=== PATIENT | female | born 1970 | race Caucasian/White ===

== ENCOUNTER 2016-07-22 12:13 | Emergency (ER) | payer BC ==
[~2016-07-22] VITALS: Ht 165.1 cm; Wt 68.0 kg
[~2016-07-22 12:13] MED LIST: HYDR-971 PO; LEVO200T5 PO; LEVO25TA4 PO; OMEP40CA5 PO; ONDA4TAB7 PO; OXYC-323 PO; PHEN15CA PO
[2016-07-22 13:20] VITALS: BP 118/78
--- NOTE | 2016-07-22 13:49 | PHYS DOC ---
Past Medical History Past Medical History: Hypothyroid Past Surgical History: Hysterectomy, Other Additional Past Surgical Histo: Thyroidectomy. Alcohol Use: None Drug Use: None Adult General Chief Complaint Chief Complaint: FACE PROBLEM HPI HPI Patient is a 46 year old female presents emergency department stating that she was going up her stairs at home last week when she fell hitting the left side of her face. She believes she had lost consciousness as she does not remember picking up things and making it back into the house. Patient states she's continued to have headaches. She states that she's had bruising to the left side of her face. She's been taken ibuprofen for the pain and discomfort. She denies any use of blood thinners. Patient denies any neck pain or discomfort. She does state that she has some urinary frequency urgency and pain with urination. She is also claiming that she is having left wrist pain and discomfort. Patient denies placing ice packs on the left wrist. Patient denies any vaginal discharge. Patient denies any fever, chills or any nausea vomiting. Review of Systems Review of Systems Constitutional: Denies fever or chills [] Eyes: Denies change in visual acuity, redness, or eye pain [] HENT: Denies nasal congestion or sore throat. Bruising left side of face Respiratory: Denies cough or shortness of breath [] Cardiovascular: No additional information not addressed in HPI [] GI: Denies abdominal pain, nausea, vomiting, bloody stools or diarrhea [] : dysuria denies hematuria [] Musculoskeletal: Denies back pain or joint pain [] Integument: Denies rash or skin lesions [] Neurologic: headache, denies focal weakness or sensory changes [] Allergies Allergies Allergies Coded Allergies Type Severity Reaction Last Updated Verified No Known Drug Allergies 01/09/15 No Physical Exam Physical Exam Constitutional: Well developed, well nourished, no acute distress, non-toxic appearance. [] HENT: Normocephalic, atraumatic, bilateral external ears normal, oropharynx moist, no oral exudates, nose normal. Bilateral tympanic membranes appear to be normal. Patient is able to open and close her mouth without difficulty. Eyes: PERRLA, EOMI, conjunctiva normal, no discharge. [] Neck: Normal range of motion, no tenderness, supple, no stridor. [] Cardiovascular:Heart rate regular rhythm, no murmur [] Lungs & Thorax: Bilateral breath sounds clear to auscultation [] Skin: Warm, dry, no erythema, no rash. [] Back: No tenderness] Extremities: Left wrist tenderness, no cyanosis, no clubbing, ROM intact, no edema. Patient was noted to have left wrist tenderness on the radial side. No bruising discoloration or deformity noted. Peripheral pulses 2+ cap refill brisk less than 2 seconds. Neurologic: Alert and oriented X 3, normal motor function, normal sensory function, no focal deficits noted. [] Psychologic: Affect normal, judgement normal, mood normal. [] Current Patient Data Vital Signs Vital Signs Date Time Temp Pulse Resp B/P Pulse Ox O2 Delivery O2 Flow Rate FiO2 07/22/16 13:20 98.0 61 16 100 Room Air 98.0 Lab Values Laboratory Tests Test 07/22/16 13:30 07/22/16 13:58 Urine Color Yellow Urine Clarity Clear Urine pH 6.0 Urine Specific [place] 1.010 Urine Protein Negativemg/dL (NEG-TRACE) Urine Glucose (UA) Negativemg/dL (NEG) Urine Ketones (Stick) Negativemg/dL (NEG) Urine Blood Small (NEG) Urine Nitrite Positive (NEG) Urine Bilirubin Negative (NEG) Urine Urobilinogen Dipstick 0.2mg/dL (0.2 mg/dL) Urine Leukocyte Esterase Large (NEG) Urine RBC Occ/HPF (0-2) Urine WBC 11-20/HPF (0-4) Urine Squamous Epithelial Cells Occ/LPF Urine Bacteria Many/HPF (0-FEW) POC Urine HCG, Qualitative Hcg negative (Negative) EKG EKG [] Radiology/Procedures Radiology/Procedures [facility] [address] [place] [address] IMAGING REPORT Signed PATIENT: LOREN MONAHAN ACCOUNT: [id number] : 1970 LOCATION: ER AGE: 46 SEX: F EXAM STATUS: REG ER ORD. PHYSICIAN: EDWARD RAMSEY NP REASON: fell on steps last week bruising to left side of face PROCEDURE: HEAD AND MAXILLOFACIAL WO PQRS Compliance Statement: One or more of the following individualized dose reduction techniques were utilized for this examination: 1. Automated exposure control 2. Adjustment of the mA and/or kV according to patient size 3. Use of iterative reconstruction technique CT of the head without contrast, 07/22/2016: History: Fall, head trauma, facial bruising Comparison is made to a study from 12/17/2017. The ventricles are within normal limits in size. There is no shift of the midline structures. There is no evidence of acute intracranial hemorrhage or mass effect. IMPRESSION: No acute intracranial abnormality is detected. CT of the facial bones without contrast, 07/22/2016: Noncontrast scans were obtained with multiplanar reconstructions produced. No fracture or dislocation is identified. No free fluid is present in the sinuses. There is mild mucosal thickening along the floor of the left maxillary sinus. The orbital contents are unremarkable. IMPRESSION: No significant facial bone abnormality is detected. DICTATED and SIGNED BY: ANNE MARIE SINHA MD DATE: 07/22/16 1440 CC: EDWARD RAMSEY NP; TEE NGO MD ~ [address] [address] IMAGING REPORT Signed PATIENT: LOREN MONAHAN ACCOUNT: [id number] : 1970 LOCATION: ER AGE: 46 SEX: F EXAM STATUS: REG ER ORD. PHYSICIAN: EDWARD RAMSEY NP REASON: fell on steps last week, hurts on and off. PROCEDURE: WRIST 3V LEFT Left wrist, 3 views, 07/22/2016: History: Fall, pain No fracture or dislocation is identified. There is mild subcutaneous edema. IMPRESSION: No acute bony abnormality is detected. DICTATED and SIGNED BY: ANNE MARIE SINHA MD DATE: 07/22/16 1405 CC: EDWARD RAMSEY NP; TEE NGO MD ~ [] Course & Med Decision Making Course & Med Decision Making Pertinent Labs and Imaging studies reviewed. (See chart for details) CT scan negative, left wrist negative. Urine positive for UTI. Patient will be placed on macrobid. Recommended plenty of water, cranberry juice, avoid cranberry juice cocktail, carbonated beverages, caffeine. alcohol and citrus fruits as these are consider irritants to the bladder. Followup with primary care provider in 5-7 days/Signs and symptoms to return to the emergency department has been provided. Patient agrees with discharge instructions, treatment regimen and followup recommendations. [] Dragon Disclaimer Dragon Disclaimer This electronic medical record was generated, in whole or in part, using a voice recognition dictation system. Departure Departure Impression: Primary Impression: Closed head injury with concussion Additional Impressions: Left wrist sprain Urinary tract infection Disposition: 01 HOME, SELF-CARE Condition: STABLE Referrals: TEE NGO MD (PCP) Patient Instructions: Concussion and Brain Injury, [id number], Head Injury, Adult, [id number], Urinary Tract Infection, [id number], Wrist Pain, Easy-to- Read Additional Instructions: Activity as tolerated Medication as prescribed Tylenol or Ibuprofen for fever, chills, or generalized body aches Drink plenty of water and cranberry juice Avoid cranberry juice cocktail, carbonated beverages, caffeine, alcohol and citrus fruits as these are considered to be irritants to the bladder Followup with your primary care provider in 5-7 days Return to emergency department as needed for signs and symptoms that become worse. Scripts Nitrofurantoin Monohyd/M-Cryst (Macrobid 100 Mg Capsule)100 Mg Capsule1 Cap PO BID #14 CAP Prov:EDWARD RAMSEY NP 07/22/16 Problem Qualifiers EDWARD RAMSEY NP Jul 22, 2016 13:48
--- NOTE | 2016-07-22 14:08 | RAD ---
Left wrist, 3 views, 07/22/2016: History: Fall, pain No fracture or dislocation is identified. There is mild subcutaneous edema. IMPRESSION: No acute bony abnormality is detected.
[2016-07-22 14:41] LABS: BILIRUBIN,URINE NEGATIVE (NEG); GLUCOSE,URINE NEGATIVE (NEG); NITRITE,URINE POSITIVE (NEG); PROTEIN,URINE NEGATIVE (NEG-TRACE); UROBILINOGEN,URINE 0.2 mg/dL (0.2 mg/dL)
--- NOTE | 2016-07-22 14:47 | RAD ---
PQRS Compliance Statement: One or more of the following individualized dose reduction techniques were utilized for this examination: 1. Automated exposure control 2. Adjustment of the mA and/or kV according to patient size 3. Use of iterative reconstruction technique CT of the head without contrast, 07/22/2016: History: Fall, head trauma, facial bruising Comparison is made to a study from 12/17/2017. The ventricles are within normal limits in size. There is no shift of the midline structures. There is no evidence of acute intracranial hemorrhage or mass effect. IMPRESSION: No acute intracranial abnormality is detected. CT of the facial bones without contrast, 07/22/2016: Noncontrast scans were obtained with multiplanar reconstructions produced. No fracture or dislocation is identified. No free fluid is present in the sinuses. There is mild mucosal thickening along the floor of the left maxillary sinus. The orbital contents are unremarkable. IMPRESSION: No significant facial bone abnormality is detected.
[2016-07-22 15:06] LABS: BACTERIA,URINE MANY /HPF (0-FEW); RBC,URINE OCC /HPF (0-2); SQUAMOUS EPITHELIAL CELL,UR OCC /LPF
[2016-07-22] MEDS ORDERED: NITR100C62 PO (15:28)
== END 2016-07-22 15:35 | disposition home or self-care (01) ==
LOC: ER 12:13
DX: S06.0X9A Concussion with loss of consciousness of unspecified duration, initial encounter (principal); S63.502A Unspecified sprain of left wrist, initial encounter; M25.532 Pain in left wrist; N39.0 Urinary tract infection, site not specified; E03.9 Hypothyroidism, unspecified; Z90.710 Acquired absence of both cervix and uterus; W10.9XXA Fall (on) (from) unspecified stairs and steps, initial encounter; Y93.89 Activity, other specified; Y99.8 Other external cause status; Y92.89 Other specified places as the place of occurrence of the external cause
CPT/HCPCS: 70450; 70486; 73110; 81001; 81025; 87086; 87186; 99285-25

== ENCOUNTER 2017-02-24 15:08 | Emergency (ER) | payer BC ==
[~2017-02-24] VITALS: Ht 165.1 cm; Wt 70.3 kg
[~2017-02-24 15:08] MED LIST changes: +NITR100C62 PO
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
[2017-02-24 16:21] LABS: BILIRUBIN,URINE NEGATIVE (NEG); GLUCOSE,URINE NEGATIVE (NEG); NITRITE,URINE POSITIVE (NEG); PH,URINE 5.5; PROTEIN,URINE NEGATIVE (NEG-TRACE); UROBILINOGEN,URINE 0.2 mg/dL (0.2 mg/dL)
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
[2017-02-24 16:43] LABS: BACTERIA,URINE MANY /HPF (0-FEW); RBC,URINE 0 /HPF (0-2); SQUAMOUS EPITHELIAL CELL,UR FEW /LPF; WBC,URINE >40 /HPF (0-4)
[2017-02-24 16:45] LABS: BASO % 1 % (0-3); EOS % 1 % (0-3); HEMATOCRIT 38.3 % (36.0-47.0); HEMOGLOBIN 12.8 g/dL (12.0-15.5); LYMPH # 1.6 x10^3/uL (1.0-4.8); LYMPH % 33 % (24-48); MEAN CORPUSCULAR HEMOGLOBIN 31 pg (25-35); MEAN CORPUSCULAR HGB CONC 34 g/dL (31-37); MEAN CORPUSCULAR VOLUME 94 fL (79-100); MONO % 5 % (0-9); NEUT % 59 % (31-73); PLATELET COUNT 239 x10^3/uL (140-400); RED CELL DISTRIBUTION WIDTH 14.6 % (11.5-14.5); WHITE BLOOD COUNT 4.7 x10^3/uL (4.0-11.0)
[2017-02-24 17:11] LABS: CALCIUM 8.8 mg/dL (8.5-10.1); CREATININE 0.7 mg/dL (0.6-1.0); GFR 89.3; POTASSIUM 3.3 mmol/L (3.5-5.1)
[2017-02-24 17:16] VITALS: BP 107/68
[2017-02-24] MEDS ORDERED: SULF1TAB24 PO (17:55)
== END 2017-02-24 18:06 | disposition home or self-care (01) ==
LOC: ER 15:08
DX: S06.0X1A Concussion with loss of consciousness of 30 minutes or less, initial encounter (principal); N39.0 Urinary tract infection, site not specified; E89.0 Postprocedural hypothyroidism; Z85.850 Personal history of malignant neoplasm of thyroid; Y08.89XA Assault by other specified means, initial encounter; Y93.89 Activity, other specified; Y92.89 Other specified places as the place of occurrence of the external cause; Y99.8 Other external cause status
CPT/HCPCS: 36415; 70450; 72125; 80048; 81001; 85025; 87086; 99285-25

== ENCOUNTER → 2017-12-15 | Outpatient (CLI) | payer OTHER | END | disposition home or self-care (01) | LOC: KCIC MAMMO 12:01 | DX: Z12.31 Encounter for screening mammogram for malignant neoplasm of breast (principal) | CPT/HCPCS: 77067 ==

== ENCOUNTER → 2019-08-13 | Outpatient (CLI) | payer OTHER ==
[~2019-08-13] MED LIST changes: +HYDR-3164 PO; -HYDR-971 PO; +OMEP40CA45 PO; -OMEP40CA5 PO; -OXYC-323 PO; +OXYC1TAB15 PO; -PHEN15CA PO; +PHEN15CA2 PO; +SULF1TAB24 PO
--- NOTE | 2019-08-13 15:31 | KCIC ---
Bilateral digital screening mammograms: Reason for examination: Routine screening. Comparison is made to previous studies dated 12/15/2017 and 11/15/2013. Interpretation was made with the benefit of CAD. The skin and nipples show no abnormalities. No abnormal axillary lymph nodes are seen. The breast parenchyma shows scattered fibroglandular density. (Breast density: Category B.) There continues be some mild parenchymal asymmetry in the lateral right breast which is stable. There are no new dominant masses, suspicious calcifications or architectural distortions. Impression: No evidence of malignancy. Recommend routine screening. BI-RADS Category 2: Benign. "Our facility is accredited by the [employer] Mammography Program." This patient's information has been entered into a reminder system for the patient to be notified with the results of her examination and a target date for the next mammogram. Electronically signed by: Rebeca Dempsey MD (08/13/2019 3:29 PM) [id number]
== END | disposition home or self-care (01) ==
LOC: KCIC MAMMO 14:10
PROVIDERS: ATTEND Family Medicine
DX: Z12.31 Encounter for screening mammogram for malignant neoplasm of breast (principal); N64.89 Other specified disorders of breast
CPT/HCPCS: 77067